=== PATIENT | male | born 1950 | race Caucasian/White ===

== ENCOUNTER → 2023-10-15 09:15 | Outpatient (REF) | payer MEDICARE, SELFPAY | LOC: DHCBS MAIN 09:15 | PROVIDERS: ATTENDING PHYSICIAN Internal Medicine Cardiovascular Disease; FAMILY PHYSICIAN Family Medicine | DX: R06.09 Other forms of dyspnea (principal); R73.03 Prediabetes | CPT/HCPCS: 93306 ==

== ENCOUNTER 2024-01-25 13:40 | Emergency (ER) | payer MEDICARE, SELFPAY ==
[2024-01-25] VITALS (7 sets, daily range): BP systolic 136–155; BP diastolic 69–93; BMI 31.0
--- NOTE | 2024-01-25 16:00 | ED.GENMED ---
History of Present Illness
General
Chief Complaint: Headache
Source: patient
Exam Limitations: none
Time Seen by Provider: 01/25/24 15:04
Nursing documentation reviewed up to this point in time: agreed with
Travel History
Have you had any contact with someone who has COVID-19?: No
Do you have any symptoms of coronavirus? Fever > 100 degrees, chills, cough, shortness of breath, sore throat, loss of taste or smell, muscle aches, or headache?: No
History of Present Illness
History of Present Illness:
73-year-old male with past history of asthma hypertension hyperlipidemia, recent diagnosis of prostate cancer that localized presenting to the emergency department today with concerns of worsening headache over the past few months also has noted
some difficulty with balance yesterday into today. Had a slight difficulty focusing his attention today as well. Denies nausea vomiting numbness weakness.
Past History
Past History
ED Past Medical History: Psychiatric and Other (DVT); Negative GERD or Hypercholesterolemia
ED Past Surgical History: Negative Cardiac
Social History
Tobacco: Non-smoker
Alcohol: None
Drug: None
Living: with family
Employment: Employed
Family History
Family History: Hypertension
Review of Systems
Review of Systems
Allergies reviewed?: Yes
All Other Systems: ROS reviewed and negative except as documented in HPI and ROS
Phy Exam
Physical Exam
Physical Exam:
GENERAL: Alert , in no apparent distress
EYE: pupils equal and reactive
NECK: Supple, no significant adenopathy.
ENT: o/p clr, mmm.
CARDIAC: Regular rate and rhythm .
LUNGS: Clear breath sounds bilaterally, no acute respiratory distress, no wheezes/rales/rhonchi
ABDOMEN: Soft, without focal tenderness, no r/g, no cvat
NEUROLOGICAL: Alert and oriented, no focal neuro deficits 5-5 upper and lower extremity strength normal sensation when palpating bilaterally normal finger-nose and bdww-gj-dbao no pronator drift. Gait is somewhat shuffling.
SKIN: Warm and dry, skin intact.
MUSCULOSKELETAL: No edema, well perfused.
PSYCH: Normal and appropriate interaction.
Course
Orders/Labs/Results
Orders:
Orders
01/25/24 15:23
CT Head W/o Iv Contrast Urgent
Comment:
Reason For Exam: right sided RIGGS, feel soff balance,
Bedside Glucose- Treatment ONCE
Cardiac Monitoring- Treatment ONCE
01/25/24 15:27
Electrocardiogram (*1) Stat
Reason for Study: Other
Other Reason for Exam: neuro symptoms
EKG- Treatment ONCE
01/25/24 15:37
Complete Blood Count/With Diff Urgent
Comprehensive Metabolic Panel Urgent
Erythrocyte Sed Rate Urgent
01/25/24 19:04
Aspirin 325 mg PO NOW STA
Abnormal Lab Results
01/25/24
15:37
RBC 3.96 L 10^6/uL
(4.70-6.10)
Hgb 12.2 L g/dL
(13.0-18.0)
Hct 34.1 L %
(39.0-52.0)
Sodium 132 L mmol/L
(135-145)
Creatinine 0.6 L mg/dL
(0.7-1.3)
01/25/24 15:37
01/25/24 15:37
Vital Signs
Initial and Last Documented VS:
Initial Vital Signs
Temp Pulse Resp BP Pulse Ox
98.9 F 87 20 155/93 97
01/25/24 13:48 01/25/24 13:48 01/25/24 13:48 01/25/24 13:48 01/25/24 13:48
Last Documented Vital Signs
Temp Pulse Resp BP Pulse Ox
98.9 F 74 15 137/86 97
01/25/24 13:48 01/25/24 18:30 01/25/24 18:30 01/25/24 18:30 01/25/24 13:48
MDM/Problems Addressed
MDM/Problems Addressed:
73-year-old male presenting to the emergency department today with concerns of right-sided headache worsening over the past few months also noted some balance issues starting yesterday. Denies changes in vision numbness weakness. Neurologic
examination without focal findings but did seem to be somewhat shuffling when walking. CT scan did show some chronic findings but did not show any acute hemorrhage or infarct did show cerebral volume loss cerebellar volume loss and Chiari I
malformation. This was discussed with the patient. It was recommended to be admitted concerning he had some ataxia on exam. It was explained to him that there is concern of potential strokelike process happening. He claims that he was unable to
stay but did understand the risk of potentially missing a stroke. He was encouraged to return immediately for any worsening symptoms or any ongoing symptoms and was encouraged to return with any change of heart. He demonstrated was able to recite
back our concern and his potential risks.
*Critical Care Note
Total Time (30-74mins, 75-104mins- exclusive of procedures): Not Applicable
ED Attending Note
-
Portions of this chart may have been created with voice recognition software.� Occasional wrong word or��sound alike� substitutions may have occurred due to the inherent limitations of voice recognition software.
Discharge Plan
Departure
Patient Disposition: Home (Routine Discharge)
Date of Disposition: 01/25/24
Time of Disposition: 19:07
Patient with high blood pressure during this ER visit?: No
Condition: Good
Covid-19: Not Applicable
Discharge Problem:
Ataxia, Left against medical advice
Instructions: Stroke
Prescriptions:
No Action
fluticasone propion-salmeterol [Advair Diskus] 1 DISK blister with device
1 puff inhalation BID
acetaminophen [Tylenol] 325 MG tablet
650 mg PO PRN PRN (Reason: shoulder pain)
aspirin 325 MG tablet
650 mg PO PRN PRN (Reason: pain)
calcium carbonate [calcium] 500 MG tablet
500 mg PO PRN PRN (Reason: leg cramps)
lorazepam 1 MG tablet
1 mg PO Q4HPRN PRN (Reason: anxiety)
vaoxnsuj-lmjmnqk-fash-lutein [Centrum Silver Ultra Women's] 1 EACH tablet
1 ea PO DAILY
Cory Red
1 tab PO DAILY
Wellbutrin
150 mg PO BID
Referrals:
Escobar Ibanez DO [Family Provider] -
Activity Restrictions/Additional Instructions:
You came to emergency department today with concerns of balance issues and ongoing headache. Here your CT scan did not show an obvious stroke but did show some chronic changes. On exam you had some slight difficulty with ambulation but otherwise
your neurologic examination was normal. You did have normal labs. It was recommended for you to stay in the hospital you were unable to. Please return immediately moving forward as needed.
Interventions
Interventions:
*Risk Screen - Suicide Last Done: 01/25/24 13:48
*General Assessment Last Done: 01/25/24 13:48
*Neglect/Abuse Screening Last Done: 01/25/24 13:48
ED- Fall Risk Assessment Last Done: 01/25/24 15:26
*ED COVID-19 Vaccine History Last Done: 01/25/24 15:26
ED- Neurological Assessment Last Done: 01/25/24 15:26
Discharge Date and Time
Print Language: BURUNDIAN
[2024-01-25 16:03] LABS: ALT (SGPT) 31 U/L (0-50); AST (SGOT) 38 U/L (17-59); Albumin 4.3 g/dl (3.5-5.0); Alkaline Phosphatase 79 U/L (38-126); Blood Urea Nitrogen 10 mg/dl (9-20); Calcium 9.3 mg/dl (8.4-10.2); Carbon Dioxide 25 mmol/L (22-30); Chloride 100 mmol/L (98-107); Estimated Creatinine Clearance 113 ml/min; Glucose 85 mg/dl (70-99); Potassium 4.2 mmol/L (3.5-5.1); Sodium 132 mmol/L (135-145); Total Bilirubin 0.3 mg/dl (0.2-1.3); Total Protein 6.6 g/dl (6.3-8.2); eGFR > 60.00
[2024-01-25 16:57] LABS: Erythrocyte Sed Rate 6 mm/hour (0-20)
[2024-01-25 16:59] LABS: % Basophils 0.7 % (0-2); % Eosinophils 2.9 % (0-6); % Immature Granulocytes 0.4 % (0-0.5); % Lymphocytes 33.2 % (20.5-51.1); % Monocytes 7.8 % (1.7-9.3); Absolute Basophils 0.1 10^3/uL (0-0.2); Absolute Eosinophils 0.2 10^3/uL (0-0.7); Absolute Lymphocytes 2.5 10^3/uL (1.2-3.4); Absolute Monocytes 0.6 10^3/uL (0.1-0.6); Absolute Neutrophils 4.1 10^3/uL (1.4-6.5); Hematocrit 34.1 % (39.0-52.0); Hemoglobin 12.2 g/dL (13.0-18.0); Mean Corp Hgb Conc. 35.8 g/dL (33.0-37.0); Mean Corpuscular Hgb 30.8 pg (27.0-31.0); Mean Corpuscular Volume 86.1 fL (80.0-94.0); Mean Platelet Volume 8.2 fL (7.4-10.4); Nucleated Red Blood Cells % 0 % (-); Platelet Count 238 10^3/uL (130-400); Red Blood Cell Count 3.96 10^6/uL (4.70-6.10); Red Cell Dist. Width 13.5 % (11.5-14.5); White Blood Cell Count 7.5 10^3/uL (4.8-10.8)
[2024-01-25] MEDS: ASPIRIN 325 MG PO (19:25)
--- NOTE | 2024-01-25 19:33 | EDRN ---
Pt says he has a little bit of a headache remaining. Pt ambulatory in ED room without difficulty, says he feels 'fine.' This RN reviewed stroke symptoms with pt and strongly encouraged pt to return to ED if his symptoms worsen in any way and not
to delay. Pt said he understood and lives close to hospital and will return if he worsens.
== END 2024-01-25 19:40 | disposition home or self-care (01) ==
LOC: EMR 13:40
PROVIDERS: Physician Assistant; EMERGENCY PHYSICIAN Student in an Organized Health Care Education/Training Program; FAMILY PHYSICIAN Family Medicine
DX: R27.0 Ataxia, unspecified (principal); Z53.29 Procedure and treatment not carried out because of patient's decision for other reasons; I10 Essential (primary) hypertension; E78.5 Hyperlipidemia, unspecified
CPT/HCPCS: 99285; 70450; 80053; 85025; 85652; 93005

== ENCOUNTER 2024-01-26 17:52 | Observation (INO) | payer MEDICARE, SELFPAY ==
[2024-01-26 12:19] VITALS: BMI 28.1
[2024-01-26 12:23] VITALS: BP 183/97
[2024-01-26 12:44] LABS: % Basophils 0.4 % (0-2); % Eosinophils 1.8 % (0-6); % Immature Granulocytes 0.5 % (0-0.5); % Lymphocytes 23.6 % (20.5-51.1); % Monocytes 6.7 % (1.7-9.3); Absolute Eosinophils 0.1 10^3/uL (0-0.7); Absolute Lymphocytes 1.8 10^3/uL (1.2-3.4); Absolute Monocytes 0.5 10^3/uL (0.1-0.6); Absolute Neutrophils 5.1 10^3/uL (1.4-6.5); Hematocrit 37.9 % (39.0-52.0); Hemoglobin 12.9 g/dL (13.0-18.0); Mean Corpuscular Hgb 30.7 pg (27.0-31.0); Mean Corpuscular Volume 90.2 fL (80.0-94.0); Mean Platelet Volume 7.8 fL (7.4-10.4); Nucleated Red Blood Cells % 0 % (-); Platelet Count 211 10^3/uL (130-400); Red Cell Dist. Width 13.6 % (11.5-14.5); White Blood Cell Count 7.6 10^3/uL (4.8-10.8)
[2024-01-26 13:09] LABS: ALT (SGPT) 29 U/L (0-50); AST (SGOT) 35 U/L (17-59); Albumin 4.4 g/dl (3.5-5.0); Alkaline Phosphatase 79 U/L (38-126); Blood Urea Nitrogen 12 mg/dl (9-20); Calcium 9.8 mg/dl (8.4-10.2); Carbon Dioxide 26 mmol/L (22-30); Chloride 98 mmol/L (98-107); Glucose 123 mg/dl (70-99); Potassium 4.4 mmol/L (3.5-5.1); Sodium 133 mmol/L (135-145); Total Bilirubin 0.5 mg/dl (0.2-1.3); Total Protein 6.8 g/dl (6.3-8.2); eGFR > 60.00
--- NOTE | 2024-01-26 16:29 | ED.GENMED ---
History of Present Illness
General
Chief Complaint: Headache
Time Seen by Provider: 01/26/24 16:29
Travel History
Have you had any contact with someone who has COVID-19?: No
Do you have any symptoms of coronavirus? Fever > 100 degrees, chills, cough, shortness of breath, sore throat, loss of taste or smell, muscle aches, or headache?: No
History of Present Illness
History of Present Illness:
HPI: The patient was seen here yesterday and was complaining of right-sided headache ongoing for months with more acute balance issues. The patient was found to be ataxic however the patient refused to stay in the hospital. Today, he had a brief
episode of slurred speech that lasted for about a minute. He also felt more 'wobbly today'. He came in here now willing to stay in the hospital for more of an evaluation.
EXAM:
GENERAL: Well appearing in no distress
HEENT: Moist oral mucosa
CARDIOVASCULAR: No murmurs, normal heart rate, regular rhythm, No chest wall tenderness
PULMONARY: No respiratory distress, breath sounds are clear and equal
ABDOMEN: Soft with no peritoneal signs, no tenderness
NEUROLOGIC: Excellent strength all extremities, no coordination deficits, normal malr-gi-anwf and normal finger-nose testing, he was able to walk without much difficulty, there is no dysarthria, NIHSS equals 0
PSYCHIATRIC: Appropriate mental status, normal insight and judgement
EXTREMITIES: Nontender, no edema, moves all extremities equally
SKIN: No rash, no lesions
TIME OF INITIAL ENCOUNTER: 4:30 p.m.
NUMBER AND COMPLEXITY OF PROBLEMS ADDRESSED AT THE ENCOUNTER
� Chronic conditions affecting care: High blood pressure, hyperlipidemia, prostate cancer, has had DVT in the past, has had retinal detachment in the past
� Acute Exacerbation and/or Progression of Chronic Illness: This is an acute to subacute problem
� Differential Diagnosis includes: Acute CVA, hemorrhagic stroke has been ruled out yesterday, occult mass not seen on CT
AMOUNT AND/OR COMPLEXITY OF DATA TO BE REVIEWED AND ANALYZED
� I performed an independent evaluation of and my interpretation is:
EKG:
CT:
X-rays:
Laboratory Studies: CBC and hemoglobin without significant change compared to prior, white count was normal,
Other:
� Review of other/old records: Reviewed CT report from yesterday: no acute abnormality was noted however Chiari I malformation was noted along with cerebral and cerebellar volume loss
� Clinical information was obtained by an independent historian: None needed
� Prescriptions/Medications Considered but not given:
� Further testing considered but not performed: Considered EKG but was in sinus yesterday
RISK OF COMPLICATIONS AND/OR MORBIDITY OR MORTALITY OF PATIENT MANAGEMENT
� Social determinants of health affecting care: Lives at home
� Discussion with other providers: Discussed case with Dr. Rucker at 4:40 PM who accepts to his service for further neurologic management
� Escalation of care including admission/observation vs risk of discharge considered: The patient was offered admission yesterday but declined. He returns feeling that his symptoms may worsen. However his NIH stroke scale is 0
currently.
Past History
Past History
ED Past Medical History: Psychiatric and Other (DVT); Negative GERD or Hypercholesterolemia
ED Past Surgical History: Negative Cardiac
Social History
Tobacco: Non-smoker
Alcohol: None
Drug: None
Living: with family
Employment: Employed
Family History
Family History: Hypertension
Phy Exam
Physical Exam
Physical Exam:
See HPI
Course
Orders/Labs/Results
Orders:
Orders
01/26/24 12:32
CMP [Comprehensive Metabolic Panel] Urgent
Complete Blood Count/With Diff Urgent
01/26/24 16:39
Acetaminophen [Tylenol] 1,000 mg PO NOW STA
01/26/24 17:11
NEUROLOGY CONSULT Routine
Consulting Provider: Pawan Barnhart
Was physician already notified: Yes
01/26/24 17:22
Admit/Transfer Patient As Directed
Co-Sign Provider:
Level of Care: Observation services
Assign to:: Telemetry
Physician / Group: nicho dutta
Diagnosis: TIA
Reason for Telemetry: CVA/TIA
Date to Stop Telemetry: 01/29/24
Time to Stop Telemetry: 11:00
01/26/24 17:24
Rizatriptan Orally Disintegrat [Maxalt Stonemason Apprentice (Orally Disintegrating)] 10 mg PO ONCE ONE
01/26/24 17:26
Code Status As Directed
Resuscitation Status: Full Code
01/29/24 11:00
DC Protocol for Telemetry ONCE
Abnormal Lab Results
01/26/24
12:32
RBC 4.20 L 10^6/uL
(4.70-6.10)
Hgb 12.9 L g/dL
(13.0-18.0)
Hct 37.9 L %
(39.0-52.0)
Sodium 133 L mmol/L
(135-145)
Creatinine 0.6 L mg/dL
(0.7-1.3)
Glucose 123 H mg/dl
(70-99)
01/26/24 12:32
01/26/24 12:32
Vital Signs
Initial and Last Documented VS:
Initial Vital Signs
Temp Pulse Resp BP Pulse Ox
98.2 F 69 18 183/97 98
01/26/24 12:23 01/26/24 12:23 01/26/24 12:23 01/26/24 12:23 01/26/24 12:23
Last Documented Vital Signs
Temp Pulse Resp BP Pulse Ox
98.2 F 69 18 183/97 98
01/26/24 12:23 01/26/24 12:23 01/26/24 12:23 01/26/24 12:23 01/26/24 12:23
*Critical Care Note
Total Time (30-74mins, 75-104mins- exclusive of procedures): Not Applicable
ED Attending Note
-
Portions of this chart may have been created with voice recognition software.� Occasional wrong word or��sound alike� substitutions may have occurred due to the inherent limitations of voice recognition software.
Discharge Plan
Departure
Patient Disposition: Admit
Date of Disposition: 01/26/24
Time of Disposition: 16:41
Presentation/result/management discussed w/ accepting MD/DO: Hospitalist
Discharge Problem:
Ataxia
Prescriptions:
No Action
aspirin 325 mg Tablet
325 mg PO ONCE PRN (Reason: mild pain)
Theragen Tablet
1 tab PO QPM
amlodipine 2.5 mg Tablet
2.5 mg PO DAILY
acetaminophen [Tylenol Arthritis] 650 mg Tablet Extended Release
1,300 mg PO TIDPRN PRN (Reason: mild pain)
dextroamphetamine-amphetamine 30 mg tablet
15 mg PO QID
lorazepam 0.5 mg Tablet
0.5 mg PO DAILYPRN PRN (Reason: mild anxiety)
desonide 0.05 % Ointment
1 applic TOPICAL BID
Patient Comments:
01/26/2024, filled on 01/22/2024 and instructed to apply BID for 7 days.
tamsulosin 0.4 mg Capsule
0.4 mg PO HS PRN (Reason: prostate issues)
Patient Comments:
01/26/2024, pt. alternates with their Tadalafil.
ibuprofen 200 mg Tablet
600 mg PO TIDPRN PRN (Reason: mild pain)
docusate sodium [Colace] 100 mg Capsule
200 mg PO HS
montelukast 10 mg Tablet
10 mg PO DAILY
bupropion HCl 300 mg tablet extended release 24 hr
300 mg PO DAILY
Rx Instructions:
01/26/2024, take with 150 mg for a total of 450 mg.
bupropion HCl 150 mg tablet extended release 24 hr
150 mg PO DAILY
Rx Instructions:
01/26/2024, take with 300 mg for a total of 450 mg.
tadalafil 10 mg Tablet
10 mg PO HSPRN PRN (Reason: ED)
Patient Comments:
01/26/2024, pt. alternates with their Tamsulosin.
olopatadine [Pataday] 0.2 % Drops
2 drp BOTH EYES BID
budesonide-formoterol [Symbicort] 80-4.5 mcg/actuation Hfa Aerosol Inhaler
1 puff INHALATION R BID
lorazepam 0.5 mg Tablet
1 mg PO DAILYPRN PRN (Reason: moderate anxiety)
lorazepam 0.5 mg Tablet
1.5 mg PO DAILYPRN PRN (Reason: severe anxiety)
atorvastatin 20 mg Tablet
20 mg PO DAILY
Interventions
Interventions:
*Risk Screen - Suicide Last Done: 01/26/24 12:23
*General Assessment Last Done: 01/26/24 12:23
*Neglect/Abuse Screening Last Done: 01/26/24 12:23
ED- Fall Risk Assessment Last Done: 01/26/24 16:55
*ED COVID-19 Vaccine History Last Done: 01/26/24 12:23
ED- Neurological Assessment Last Done: 01/26/24 16:55
Discharge Date and Time
Print Language: LEBANESE
[2024-01-26 16:30] VITALS: BP 161/88
[2024-01-26] MEDS: TYLENOL 1000 MG PO (16:48)
--- NOTE | 2024-01-26 16:50 | HPS.HSE ---
Addendum entered and electronically signed by Hussein De La Rosa MD 01/26/24 18:01:
I saw and examined the patient.
The ACTIVE DIRECTORY ARCHITECT or PA's note was reviewed and I agree with the note.
Comment:
73M ADHD DVT HLD Asthma HTN Prostate Ca p/w persistent intermittent right sided headache 6 weeks. Prompted to visit ED when he developed intermittent ataxia slurred speech lasting seconds past few days. Right sided headache denies vision
disturbances chest abd pain palpitations fever chills nausea vomiting diarrhea constipation. Hypertensive but otherwise VSS. CT head noted no acute abn's. Pending MRI
Physical Exam
General: No pallor, cyanosis, or jaundice.
HEENT: Throat clear. PERRLA Normocephalic atraumatic, horizontal nystagmus
NECK: Supple. No JVD Carotid Bruits
RESPIRATORY: Lungs clear to auscultation. No crackles wheezes stridor
CVS: S1, S2 normal. RRR. No murmur, rub or gallop.
ABDOMEN: Soft, non-tender. No distension. BS+/normal.
EXTREMITIES: No peripheral cyanosis or edema.
CORNCOB PIPES ASSEMBLER: AOx3. No focal deficits.
#Migraine
#Intermittent Ataxia Slurred Speech
Obs
Neuro Eval
trial triptan once
cont ASA
follow up Brain MRI
blood pressure control
Original Note:
Family Physician
-
Family Physician:
Chief Complaint
-
ataxic
slurred speech
History of Present Illness
73-year-old manage medical history for depression, ADHD, DVT, hyperlipidemia, asthma, hypertension, prostate cancer, BPH, presented to us with right-sided headache for 6 weeks. It was intermittent in the beginning but for past few days it has been
constant headache. Patient tried Tylenol as well as ibuprofen with some relief in his symptoms. Yesterday patient was ataxic. Patient was evaluated in the ER. Head CT obtained with no acute findings patient declined to stay overnight. Today
morning he noted slurred speech which lasted for few seconds. Patient also complained of nausea. Denied vomiting, diarrhea, abdominal pain. Patient denied dizziness or syncopal episode. Patient denied fever, chills, chest pain, short of breath.
Patient denied dysuria hematuria.
Head CT obtained last night with no acute findings. Admitting for further management
Medical History
Past Medical History
Past Medical History: Reports Other
Additional Past Medical History:
History of prostate cancer
Depression
Anxiety
DVT
Hyperlipidemia
Hypertension
Asthma
BPH
Past Surgical History: Reports Other
Additional Past Surgical History:
Detached retinal surgery
Tonsillectomy
Eye lead reduction/brow lift
Bilateral cataract surgery
Social History
Tobacco: Former Smoker
Alcohol: None
Drug: None
Personal: Partner
Living: With Family
Family History
Family History: Not pertinent
Allergies / Home Medications
Allergies reflects when Allergies were last updated in [facility].
Home Medications with original date entered in [facility]
Allergy/Medication List:
Allergies
Allergy/AdvReac Type Severity Reaction Status Date / Time
No Known Allergies Allergy Verified 01/26/24 12:23
Home Medications
acetaminophen 650 mg tablet,extended release 1,300 mg PO TIDPRN PRN mild pain 01/26/24
amlodipine 2.5 mg tablet 2.5 mg PO DAILY 01/26/24
aspirin 325 mg tablet 325 mg PO ONCE PRN mild pain 01/26/24
budesonide-formoterol HFA 80 mcg-4.5 mcg/actuation aerosol inhaler (Symbicort) 1 puff inhalation R BID 01/26/24
bupropion HCl 150 mg 24 hr tablet, extended release 150 mg PO DAILY 01/26/24
bupropion HCl 300 mg 24 hr tablet, extended release 300 mg PO DAILY 01/26/24
desonide 0.05 % topical ointment 1 applic topical BID neck 01/26/24
dextroamphetamine-amphetamine 30 mg tablet 15 mg PO QID 01/26/24
docusate sodium 100 mg capsule (Colace) 200 mg PO HS 01/26/24
ibuprofen 200 mg tablet 600 mg PO TIDPRN PRN mild pain 01/26/24
lorazepam 0.5 mg tablet 0.5 mg PO TID PRN anxiety 01/26/24
montelukast 10 mg tablet 10 mg PO DAILY 01/26/24
olopatadine 0.2 % eye drops 2 drp BOTH EYES BID 01/26/24
tadalafil 10 mg tablet 10 mg PO HSPRN PRN ED 01/26/24
tamsulosin 0.4 mg capsule 0.4 mg PO HS PRN prostate issues 01/26/24
therapeutic multivitamin 1 tab PO QPM 01/26/24
Review of Systems
-
Constitutional: Reports No Symptoms
EENT: Reports No Symptoms
Respiratory: Reports No Symptoms
Cardiac: Reports No Symptoms
Abdomen/GI: Reports Nausea
: Reports No Symptoms
Musculoskeletal: Reports No Symptoms
Skin: Reports No Symptoms
Neurological: Reports Headache and Other (Slurred speech, ataxia)
Endocrine: Reports No Symptoms
Hematologic/Lymphatic: Reports No Symptoms
Psych: Reports No Symptoms
Physical Exam
Vital Signs
Vital Signs
Temp Pulse Resp BP Pulse Ox
98.2 F 69 18 183/97 98
01/26/24 12:23 01/26/24 12:23 01/26/24 12:23 01/26/24 12:23 01/26/24 12:23
Physical Exam
General: Well Developed, Well Nourished and No Apparent Distress
HEENT: NormoCephalic, Moist mucous membranes and Atraumatic
Respiratory: Clear
Cardiac: S1/S2 and Regular Rhythm; No Murmur or Rub
GI: Soft, Non Tender, Non Distended and Normal Bowel Sounds; No Organomegaly
Rectal: Deferred by Provider
Musculoskeletal: No Clubbing, No Cyanosis and No Edema
Skin: No Rash
Neuro: AO x 3 and Nonfocal/grossly intact
Psych: Calm
Laboratory Results
-
01/26/24 12:32
01/26/24 12:32
Laboratory Results
Total Bilirubin 0.5 mg/dl (0.2-1.3) 01/26/24 12:32
AST 35 U/L (17-59) 01/26/24 12:32
ALT 29 U/L (0-50) 01/26/24 12:32
Alkaline Phosphatase 79 U/L (38-126) 01/26/24 12:32
Data Reviewed
-
CT Scan: Report Reviewed by me
Lab Data: Labs Reviewed by me
Impression/Plan
-
# Ataxia/slurred speech rule out acute CVA vs migraine RIGGS
-CT negative
-Aspirin continued
-initated on statin
-gave Rizatriptan once in ER.
-Obtain MRI
-Statin continued
-PT/OT consult
-Obtain A1c, lipid profile
-Neurology consulted
# Essential hypertension
-BP elevated in ER
-Norvasc continued
-iv hydralazine prn for SBp>180,DBp>100
# History of asthma
-Not in acute exacerbation
-Symbicort continued
-Singular continued
# Depression/anxiety
-Wellbutrin continued
-Lorazepam continued
# History of ADHD
-dextroamphetamine-amphetamine continued
# History of retinal detachment surgery
-Eyedrops from home continued
# BPH
-Flomax continued
# DVT prophylaxis
-Lovenox
# CODE STATUS
-Full code
[2024-01-26] MEDS: MAXALT MLT (ORALLY DISINTEGRATING) 10 MG PO ×2 (17:52→21:51)
[2024-01-26 19:36] VITALS: BP 182/97; BMI 29.4
[2024-01-26] MEDS: ADDERALL PO ×2 (20:16→21:51)
[2024-01-26] MEDS: SYMBICORT 80/4.5 MCG INHALER 1 PUFF INH (20:19)
[2024-01-26 20:35] VITALS: BP 147/83
[2024-01-26] MEDS: ZADITOR 2 DROP BOTH EYES (20:50)
[2024-01-26] MEDS: FLOMAX 0.400000000000000022 MG PO (20:51)
[2024-01-26] MEDS: LIPITOR 40 MG PO (20:51)
[2024-01-26] MEDS: COLACE 200 MG PO (20:51)
[2024-01-26] MEDS: ATIVAN 0.5 MG PO (20:52)
--- NOTE | 2024-01-26 22:15 | PTCARENOTE ---
Received patient from ED via stretcher at 1999. Patient ambulated from stretcher to bed independently. Patient c/o 5/10 posterior headache. INDEPENDENT MARKETING CONSULTANT made aware, rizatriptan ordered and given to patient at 2150 with relief. AAOx3, NIH 1, see neuro
flowsheet. Oriented patient to room and placed call valerio within reach.
[2024-01-26 23:31] VITALS: BP 124/72
[2024-01-27 03:28] VITALS: BP 109/69
[2024-01-27 05:24] LABS: Hematocrit 36.9 % (39.0-52.0); Hemoglobin 12.7 g/dL (13.0-18.0); Mean Corp Hgb Conc. 34.4 g/dL (33.0-37.0); Mean Corpuscular Hgb 30.8 pg (27.0-31.0); Mean Corpuscular Volume 89.3 fL (80.0-94.0); Mean Platelet Volume 8.2 fL (7.4-10.4); Platelet Count 231 10^3/uL (130-400); Red Blood Cell Count 4.13 10^6/uL (4.70-6.10); Red Cell Dist. Width 13.5 % (11.5-14.5); White Blood Cell Count 6.6 10^3/uL (4.8-10.8)
[2024-01-27 05:46] LABS: Blood Urea Nitrogen 12 mg/dl (9-20); Calcium 9.6 mg/dl (8.4-10.2); Carbon Dioxide 24 mmol/L (22-30); Chloride 102 mmol/L (98-107); Estimated Creatinine Clearance 99 ml/min; Glucose 100 mg/dl (70-99); HDL Cholesterol 63 mg/dl; LDL Cholesterol, Calculated 81 mg/dl; Potassium 4.3 mmol/L (3.5-5.1); Sodium 136 mmol/L (135-145); Total Cholesterol 164 mg/dl (50-199); Triglyceride 100 mg/dl (10-149); Very Low Density Lipoprotein 20 mg/dl (0-30); eGFR > 60.00
[2024-01-27] MEDS: SYMBICORT 80/4.5 MCG INHALER 1 PUFF INH (07:54)
[2024-01-27 07:55] VITALS: BP 136/76
[2024-01-27] MEDS: ADDERALL PO ×2 (08:39→08:47)
[2024-01-27] MEDS: SINGULAIR 10 MG PO (08:40)
[2024-01-27] MEDS: ZADITOR 2 DROP BOTH EYES (08:40)
[2024-01-27] MEDS: NORVASC 2.5 MG PO ×2 (08:40→12:05)
[2024-01-27] MEDS: WELLBUTRIN XL (24 hour extended release) 300 MG PO (08:40)
[2024-01-27] MEDS: WELLBUTRIN XL (24 hour extended release) 150 MG PO (08:40)
[2024-01-27] MEDS: LOW STRENGTH ASPIRIN 81 MG PO (08:40)
--- NOTE | 2024-01-27 08:55 | W.PN.HOSP.TC ---
Today's Communication/Plan
-
Discharge today
Assessment / Plan
Assessment / Plan
73M ADHD DVT HLD Asthma HTN Prostate Ca p/w persistent intermittent right sided headache 6 weeks. Prompted to visit ED when he developed intermittent ataxia slurred speech lasting seconds past few days. Right sided headache denies vision
disturbances chest abd pain palpitations fever chills nausea vomiting diarrhea constipation. Hypertensive but otherwise VSS. CT head noted no acute abn's. Pending MRI
# Complex migraine
#Intermittent Ataxia Slurred Speech
Brain MRI negative for CVA
Migraine resolved with Compazine and rizatriptan
Medically stable for discharge
Neurology recommends continuing statin, no need for aspirin
#Glucose intolerance
Hemoglobin A1c 6.3
Discussed with patient the need for low carbohydrate diet
# Essential hypertension
-Blood pressure improved, continue Norvasc
# History of asthma
-Not in acute exacerbation
-Symbicort continued
-Singular continued
# Depression/anxiety
-Wellbutrin continued
-Lorazepam continued
# History of ADHD
-dextroamphetamine-amphetamine continued
# History of retinal detachment surgery
-Eyedrops from home continued
# BPH
-Flomax continued
# DVT prophylaxis
-Lovenox
# CODE STATUS
-Full code
Physical Exam
General: No acute distress
HEENT: Normocephalic, Atraumatic, EOMI, MMM
Respiratory: Clear to Auscultation bilaterally
Cardiac: Normal S1/S2, Regular Rate and Rhythm
GI: Soft, Nontender, Nondistended, Normal Bowel Sounds
Extremities: No Clubbing, Cyanosis, or Edema
Neuro: Nonfocal/Grossly Intact
Psych: Calm, Cooperative
Derm: No Visible lesions
Anticipated Discharge: Today
Subjective/Interval History
-
Date of Service: January 27, 2024
Headache improved. No more dysarthria. No fever, no vomiting.
Objective Data
-
Labs:
Laboratory Results
01/27/24
04:40
WBC 6.6
Hgb 12.7 L
Hct 36.9 L
Plt Count 231
Sodium 136
Potassium 4.3
Chloride 102
Carbon Dioxide 24
BUN 12
Creatinine 0.6 L
Glucose 100 H
Calcium 9.6
Vital Signs:
Vital Signs
Temp Pulse Resp BP Pulse Ox
97.8 F 75 14 136/76 99
01/27/24 07:55 01/27/24 08:40 01/27/24 07:58 01/27/24 08:40 01/27/24 07:58
I&O
01/26/24 01/27/24 01/28/24
06:59 06:59 06:59
Intake Total 240 / 240
Balance 240 / 240
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
[2024-01-27 10:09] LABS: Glycohemoglobin (HgbA1c) 6.3 % (4.0-5.6)
[2024-01-27 12:04] VITALS: BP 146/76
[2024-01-27] MEDS: MAXALT MLT (ORALLY DISINTEGRATING) 10 MG PO (12:05)
[2024-01-27] MEDS: ADDERALL 15 MG PO (12:06)
--- NOTE | 2024-01-27 13:39 | W.DCSUMMARY ---
Discharge Summary
Discharge Data
Date of Admission: 01/26/24
Date of Discharge: 01/27/24
-
Pending Results: No
Hospital Course
Discharge diagnosis:
Complex headache
Transient ataxia and dysarthria
Glucose intolerance
Benign essential hypertension
History of asthma
Anxiety/depression
History of retinal detachment surgery
Benign prostatic hypertrophy
Consults: Neurology
Brain MRI:
There is no acute intracranial process.
There is no mass or abnormal enhancement on postcontrast imaging. No findings to suggest abnormal enhancement or metastatic disease.
There is mild diffuse volume loss. There is moderate leukoaraiosis, slightly increased in the interval since the previous exam.
Hospital course:
73-year-old male with a past medical history of prostate cancer, hypertension, and asthma was admitted for intermittent right-sided headache for 6 weeks. Associated symptoms include ataxia, slurred speech that is waxing and waning. His ataxia and
slurred speech have resolved.
Patient was seen in conjunction with neurology. His MRI was negative for acute stroke. He was treated with Maxalt and Compazine for his headache. His headache resolved. Neurology recommends continuing his statin. He does not need aspirin 81 mg
daily.
Patient's blood pressure was elevated upon admission at 182/97. Suspect this is due to his headache. His blood pressure did improve to 146/76. Neurology recommends he increase his amlodipine from 2.5 mg daily to 5 mg daily.
Patient was found to have glucose intolerance, and was counseled on a low carbohydrate diet.
Patient is medically stable and cleared by neurology for discharge.
Disposition: Home self-care
Discharge planning: Required 33-minute
Discharge Plan
-
Patient Disposition: Home (Routine Discharge)
Discharge Diagnosis/Procedures: Complex migraine
Condition: Fair
Diet: Low Fat, Low Cholesterol and Diabetic, Carb Controlled
Activity: As tolerated
Driving Restrictions: As prior to admission
Referrals:
Brittni Johnson CRNP [Specified Professional Personl] - in four to six weeks
Escobar Ibanez DO [Family Provider] - in one week
Prescriptions:
New
rizatriptan 10 mg tablet,disintegrating
10 mg PO ONCE PRN (Reason: migraine headache) Qty: 10 0RF
prochlorperazine maleate [Compazine] 10 mg tablet
10 mg PO BID PRN (Reason: migraine headache) Qty: 30 0RF
amlodipine 5 mg tablet
5 mg PO DAILY Qty: 30 0RF
Continued
aspirin 325 mg Tablet
325 mg PO ONCE PRN (Reason: mild pain)
therapeutic multivitamin Tablet
1 tab PO QPM
amlodipine 2.5 mg Tablet
2.5 mg PO DAILY
acetaminophen 650 mg Tablet Extended Release
1,300 mg PO TIDPRN PRN (Reason: mild pain)
dextroamphetamine-amphetamine 30 mg tablet
15 mg PO QID
lorazepam 0.5 mg Tablet
0.5 mg PO DAILYPRN PRN (Reason: mild anxiety)
desonide 0.05 % Ointment
1 applic TOPICAL BID
Patient Comments:
01/26/2024, filled on 01/22/2024 and instructed to apply BID for 7 days.
tamsulosin 0.4 mg Capsule
0.4 mg PO HS PRN (Reason: prostate issues)
Patient Comments:
01/26/2024, pt. alternates with their Tadalafil.
ibuprofen 200 mg Tablet
600 mg PO TIDPRN PRN (Reason: mild pain)
docusate sodium [Colace] 100 mg Capsule
200 mg PO HS
montelukast 10 mg Tablet
10 mg PO DAILY
bupropion HCl 300 mg tablet extended release 24 hr
300 mg PO DAILY
Rx Instructions:
01/26/2024, take with 150 mg for a total of 450 mg.
bupropion HCl 150 mg tablet extended release 24 hr
150 mg PO DAILY
Rx Instructions:
01/26/2024, take with 300 mg for a total of 450 mg.
tadalafil 10 mg Tablet
10 mg PO HSPRN PRN (Reason: ED)
Patient Comments:
01/26/2024, pt. alternates with their Tamsulosin.
olopatadine 0.2 % Drops
2 drp BOTH EYES BID
budesonide-formoterol [Symbicort] 80-4.5 mcg/actuation Hfa Aerosol Inhaler
1 puff INHALATION R BID
lorazepam 0.5 mg Tablet
1 mg PO DAILYPRN PRN (Reason: moderate anxiety)
lorazepam 0.5 mg Tablet
1.5 mg PO DAILYPRN PRN (Reason: severe anxiety)
atorvastatin 20 mg Tablet
20 mg PO DAILY
Discharge Orders:
Discharge Patient (As Directed); Ordered 01/27/24
Ordered By: Shimon Del Rio
Discharge Date and Time
Discharge Date/Time: 01/27/24 14:26
Print Language: DOMINICAN
[2024-01-27 14:00] VITALS: BP 146/83; PULSE 81; O2SAT 99
[2024-01-27 14:04] VITALS: BP 146/83; PULSE 84; O2SAT 99
--- NOTE | 2024-01-27 14:22 | CM ---
Alert awake oriented patient who lives with his SO River who lives in a 2 story home with 2 step to enter and 12 steps to bed and bathroom. He is independent in driving and in all activities of daily living.He was offered VN he declined need.He
said River will drive him home.
No VN hx / No SNF history
Pharm[facility]
PCP DR Ibanez
PLAN Home Declined VN
--- NOTE | 2024-01-27 14:41 | PTOTSP ---
pt currently demonstrates ability to complete simple ADLs, functional transfers, ambulation with no assistance. no acute OT needs identified at this time, will sign off.
--- NOTE | 2024-01-27 15:11 | PTOTSP ---
Patient demonstrates independence with mobility, transfers and ambulation. Does not demonstrate further need for skilled therapy and will be discharged. If needs change, please re-consult.
== END 2024-01-27 14:26 | disposition home or self-care (01) ==
LOC: 4 EAST ACU 17:52
PROVIDERS: Emergency Medicine; Registered Nurse; ADMITTING PHYSICIAN Internal Medicine; ATTENDING PHYSICIAN Family Medicine; CONSULT PHYSICIAN Psychiatry & Neurology Neurology; EMERGENCY PHYSICIAN Emergency Medicine; FAMILY PHYSICIAN Family Medicine
DX: G43.109 Migraine with aura, not intractable, without status migrainosus (principal); R27.0 Ataxia, unspecified; G93.5 Compression of brain; E74.39 Other disorders of intestinal carbohydrate absorption; R47.81 Slurred speech; I10 Essential (primary) hypertension; E78.5 Hyperlipidemia, unspecified; F90.9 Attention-deficit hyperactivity disorder, unspecified type; J45.909 Unspecified asthma, uncomplicated; F32.A Depression, unspecified; F41.9 Anxiety disorder, unspecified; R11.0 Nausea; N40.0 Benign prostatic hyperplasia without lower urinary tract symptoms; Z85.46 Personal history of malignant neoplasm of prostate; Z86.718 Personal history of other venous thrombosis and embolism; Z82.49 Family history of ischemic heart disease and other diseases of the circulatory system; Z87.891 Personal history of nicotine dependence; Z79.51 Long term (current) use of inhaled steroids; Z79.82 Long term (current) use of aspirin
CPT/HCPCS: 70553; 80048; 80053; 80061; 83036; 85025; 85027; 94640; 97116; 97162; 97165; 99285; G0378

== ENCOUNTER → 2024-05-24 13:49 | Outpatient (REF) | payer MEDICARE, SELFPAY | LOC: RAD 13:49 | PROVIDERS: ATTENDING PHYSICIAN Internal Medicine Critical Care Medicine; FAMILY PHYSICIAN Family Medicine | DX: M79.89 Other specified soft tissue disorders (principal) | CPT/HCPCS: 93971 ==

== ENCOUNTER 2024-05-26 14:12 | Emergency (ER) | payer MEDICARE, SELFPAY ==
[2024-05-26] VITALS (15 sets, daily range): BP systolic 136–167; BP diastolic 81–95; PULSE 70–82
[2024-05-26 14:32] LABS: % Basophils 0.2 % (0-2); % Eosinophils 0.3 % (0-6); % Immature Granulocytes 0.5 % (0-0.5); % Lymphocytes 14.1 % (20.5-51.1); % Monocytes 4.4 % (1.7-9.3); % Neutrophils 80.5 % (42.2-75.2); Absolute Lymphocytes 1.2 10^3/uL (1.2-3.4); Absolute Monocytes 0.4 10^3/uL (0.1-0.6); Hematocrit 37.5 % (39.0-52.0); Hemoglobin 13.1 g/dL (13.0-18.0); Mean Corp Hgb Conc. 34.9 g/dL (33.0-37.0); Mean Corpuscular Hgb 30.2 pg (27.0-31.0); Mean Corpuscular Volume 86.4 fL (80.0-94.0); Mean Platelet Volume 7.8 fL (7.4-10.4); Nucleated Red Blood Cells % 0 % (-); Platelet Count 231 10^3/uL (130-400); Red Blood Cell Count 4.34 10^6/uL (4.70-6.10); Red Cell Dist. Width 13.1 % (11.5-14.5); White Blood Cell Count 8.7 10^3/uL (4.8-10.8)
[2024-05-26 15:06] LABS: ALT (SGPT) 20 U/L (0-50); AST (SGOT) 26 U/L (17-59); Albumin 4.6 g/dl (3.5-5.0); Alkaline Phosphatase 91 U/L (38-126); Blood Urea Nitrogen 14 mg/dl (9-20); Calcium 9.9 mg/dl (8.4-10.2); Carbon Dioxide 20 mmol/L (22-30); Chloride 99 mmol/L (98-107); Glucose 139 mg/dl (70-99); Potassium 3.7 mmol/L (3.5-5.1); Sodium 134 mmol/L (135-145); Total Bilirubin 0.4 mg/dl (0.2-1.3); Total Protein 7.1 g/dl (6.3-8.2); eGFR > 60.00
--- NOTE | 2024-05-26 15:35 | ED.GENMED ---
History of Present Illness
<Geraldine Jackson PA-C - Last Filed: 05/26/24 23:02>
General
Chief Complaint: Dizziness
Source: patient
Exam Limitations: none
Time Seen by Provider: 05/26/24 14:59
Nursing documentation reviewed up to this point in time: agreed with
History of Present Illness
History of Present Illness:
Patient is a 74-year-old male presenting to the emergency department for evaluation of multiple symptoms today. Patient states that starting yesterday he felt extremely fatigued with some lightheadedness, nausea, and headache. Patient states he
felt somewhat unsteady. He also endorses subjective fevers, chills. Patient states today he still feels somewhat lightheaded and fatigued. He does have a persistent mild headache although somewhat improved from yesterday. He also notes that he
feels that he has been urinating less.
Patient does deny any chest pain or shortness of breath. Patient denies any sensation of true dizziness. Patient denies any confusion, visual changes or disturbances, double vision.
Patient denies any sick contacts.
Past History
<Geraldine Jackson PA-C - Last Filed: 05/26/24 23:02>
Past History
ED Past Medical History: Psychiatric and Other (DVT); Negative GERD or Hypercholesterolemia
ED Past Surgical History: Negative Cardiac
Social History
Tobacco: Non-smoker
Alcohol: None
Drug: None
Living: with family
Employment: Employed
Family History
Family History: Hypertension
Review of Systems
<Geraldine Jackson PA-C - Last Filed: 05/26/24 23:02>
Review of Systems
Allergies reviewed?: Yes
All Other Systems: ROS reviewed and negative except as documented in HPI and ROS
Phy Exam
<Geraldine Jackson PA-C - Last Filed: 05/26/24 23:02>
Physical Exam
Physical Exam:
Vitals: Hypertensive, otherwise vital signs stable. Afebrile
General: Patient is well appearing, no acute distress. Nontoxic-appearing
Skin: Warm and dry, no rashes or lesions
Head: Normocephalic, atraumatic
Eyes: Sclera nonicteric. EOMs intact. No nystagmus.
Throat: Protecting airway
Neck: Normal ROM, no cervical spine tenderness, no meningismus
Cardiac: Regular rate and rhythm, no murmurs.
Pulm: Normal respiratory effort, no wheezes, rales, rhonchi heard on exam.
Abdomen: Abdomen soft. No abdominal tenderness.
Extremities: No evidence of cyanosis or edema. [place] distal pulses
Neuro: AAOx3. CN II-XII intact. No focal neurologic deficits. Normal finger to nose. Strength 5/5 in upper and lower extremities. Sensation fully intact. Steady gait. Fluid speech
Psychiatric: Normal affect.
Course
<Geraldine Jackson PA-C - Last Filed: 05/26/24 23:02>
Orders/Labs/Results
Orders:
Orders
05/26/24 14:18
Electrocardiogram (*1) Urgent
Reason for Study: Chest Pain
EKG- Treatment ONCE
05/26/24 14:23
Complete Blood Count/With Diff Urgent
Comprehensive Metabolic Panel Urgent
Lipase Urgent
Comment: ADD ON
05/26/24 15:23
Orthostatic VS- Treatment ONCE
0.9% Sodium Chloride 1000 ml [Nss] 1,000 ml IV BOLUS
05/26/24 15:24
Add On- LAB Urgent
Tests Added?: lipase
05/26/24 15:29
Acetaminophen [Tylenol] 650 mg PO NOW STA
05/26/24 15:45
COVID-19 Antigen Urgent
Source: Nasal Swab
Influenza A+B Rapid Molecular Urgent
BEN Source: Nasal Swab
Specimen Description:
05/26/24 18:06
CT Chest Pe Study Urgent
Comment: known DVT
Reason For Exam: Shortness of breath, lightheaded
05/26/24 18:22
Troponin I Urgent
05/26/24 19:26
Ketorolac [Toradol] 15 mg IV NOW STA
05/26/24 20:56
Urinalysis Reflex To Culture Urgent
Date Specimen was Collected: 05/26/24
Time Specimen was Collected: 20:55
Abnormal Lab Results
05/26/24 05/26/24
14:23 20:56
RBC 4.34 L 10^6/uL
(4.70-6.10)
Hct 37.5 L %
(39.0-52.0)
Absolute Neuts (auto) 7.0 H 10^3/uL
(1.4-6.5)
Neutrophils % 80.5 H %
(42.2-75.2)
Lymphocytes % 14.1 L %
(20.5-51.1)
Sodium 134 L mmol/L
(135-145)
Carbon Dioxide 20 L mmol/L
(22-30)
Creatinine 0.6 L mg/dL
(0.7-1.3)
Glucose 139 H mg/dl
(70-99)
Urine Ketones Trace A
(Negative)
05/26/24 14:23
05/26/24 14:23
Vital Signs
Initial and Last Documented VS:
Initial Vital Signs
Temp Pulse Resp BP Pulse Ox
98.7 F 83 20 161/95 98
05/26/24 14:15 05/26/24 14:15 05/26/24 14:15 05/26/24 14:15 05/26/24 14:15
Last Documented Vital Signs
Temp Pulse Resp BP Pulse Ox
98.7 F 67 11 167/89 96
05/26/24 14:15 05/26/24 22:00 05/26/24 22:00 05/26/24 22:00 05/26/24 22:00
<Jesus Hansen, DO - Last Filed: 05/28/24 15:08>
Orders/Labs/Results
Orders:
Orders
05/26/24 14:18
Electrocardiogram (*1) Urgent
Reason for Study: Chest Pain
EKG- Treatment ONCE
05/26/24 14:23
Complete Blood Count/With Diff Urgent
Comprehensive Metabolic Panel Urgent
Lipase Urgent
Comment: ADD ON
05/26/24 15:23
Orthostatic VS- Treatment ONCE
0.9% Sodium Chloride 1000 ml [Nss] 1,000 ml IV BOLUS
05/26/24 15:24
Add On- LAB Urgent
Tests Added?: lipase
05/26/24 15:29
Acetaminophen [Tylenol] 650 mg PO NOW STA
05/26/24 15:45
COVID-19 Antigen Urgent
Source: Nasal Swab
Influenza A+B Rapid Molecular Urgent
BEN Source: Nasal Swab
Specimen Description:
05/26/24 18:06
CT Chest Pe Study Urgent
Comment: known DVT
Reason For Exam: Shortness of breath, lightheaded
05/26/24 18:22
Troponin I Urgent
05/26/24 19:26
Ketorolac [Toradol] 15 mg IV NOW STA
05/26/24 20:56
Urinalysis Reflex To Culture Urgent
Date Specimen was Collected: 05/26/24
Time Specimen was Collected: 20:55
Abnormal Lab Results
05/26/24 05/26/24
14:23 20:56
RBC 4.34 L 10^6/uL
(4.70-6.10)
Hct 37.5 L %
(39.0-52.0)
Absolute Neuts (auto) 7.0 H 10^3/uL
(1.4-6.5)
Neutrophils % 80.5 H %
(42.2-75.2)
Lymphocytes % 14.1 L %
(20.5-51.1)
Sodium 134 L mmol/L
(135-145)
Carbon Dioxide 20 L mmol/L
(22-30)
Creatinine 0.6 L mg/dL
(0.7-1.3)
Glucose 139 H mg/dl
(70-99)
Urine Ketones Trace A
(Negative)
05/26/24 14:23
05/26/24 14:23
Vital Signs
Initial and Last Documented VS:
Initial Vital Signs
Temp Pulse Resp BP Pulse Ox
98.7 F 83 20 161/95 98
05/26/24 14:15 05/26/24 14:15 05/26/24 14:15 05/26/24 14:15 05/26/24 14:15
Last Documented Vital Signs
Temp Pulse Resp BP Pulse Ox
98.7 F 67 11 167/89 96
05/26/24 14:15 05/26/24 22:00 05/26/24 22:00 05/26/24 22:00 05/26/24 22:00
<Geraldine Jackson PA-C - Last Filed: 05/26/24 23:02>
MDM/Problems Addressed
Differential Diagnosis Includes:
Not limited to: viral illness, orthostatic hypotension, anemia, UTI, sinusitis, gastroenteritis, doubt central neurologic process.
MDM/Problems Addressed:
74-year-old male presenting with generalized weakness and lightheadedness. Does endorse persistent headache, gradual in onset. Denies any true dizziness sensation. Does feel somewhat unsteady on feet while walking. Vital signs stable. Physical
exam as above. Patient relatively well-appearing, in no apparent distress. Patient is nontoxic-appearing. Patient is conversational. Heart regular rate and rhythm. Lungs are clear bilaterally. Abdomen soft nontender. Patient is perfusing well
with great distal pulses. Patient is alert and oriented with no focal neurologic deficits. Patient has steady gait with no clear ataxia on my exam. Differential broad at this time although include viral illness, anemia, sinusitis, allergic
rhinitis, cardiac arrhythmia etc. Do not suspect acute intra-abdominal infection. Do not suspect central neurologic process. Will check basic labs, viral swabs, orthostatics. Will give IV fluid, Tylenol. Will closely monitor and reassess.
Chronic conditions affecting care:
HTN, HLD
Acute Exacerbation and/or Progression of Chronic Illness:
N/A
<Geraldine Jackson PA-C - Last Filed: 05/26/24 23:02>
*Radiology
Radiology exam reviewed: radiology read reviewed
*Pulse Oximetry
Patient hypoxic: no
*EKG
Interpreted by ED Provider?: Yes
EKG Intrepretation Date: 05/26/24
Interpretation: normal
Comparison EKG: no changes
Heart Rate: 76
Rate: normal
Rhythm: sinus
[place]: normal axis
Interval: normal interval
QRS Pattern: low voltage
Ischemia: non-specific ST changes
*[employer] Interpretation
Rate: normal
Interpretation: normal
Heart Rate: 72
Rhythm: sinus
*Critical Care Note
Total Time (30-74mins, 75-104mins- exclusive of procedures): Not Applicable
<Geraldine Jackson PA-C - Last Filed: 05/26/24 23:02>
Update Note
Update Note:
Update: Labs reviewed. No clinically significant abnormalities. Urine is not infected. Viral swabs including COVID and flu negative. On reassessment�patient still endorsing headache. He was up and walking to the bathroom and states that he
still feels unsteady on his feet and now endorses shortness of breath. Upon further questioning�he states he has had some mild exertional shortness of breath over the past few weeks. Patient does have a known nonocclusive DVT in his right lower
leg, not currently anticoagulated. Given this known clot and new onset shortness of breath�will check CT a chest to ensure no pulmonary embolism, although I find unlikely. Patient is not hypoxic and remains in no apparent respiratory distress.
Update: Troponin normal. Symptoms been ongoing over the past 2 weeks�is sufficient to rule out acute UT. Do not suspect ACS. PE study normal. Patient does state that headache is somewhat improved although waxes and wanes. Patient remains out
any focal neurologic deficits. Given symptoms have persisted and patient still reports unsteadiness and lightheadedness�admission to hospital was offered and discussed. Discussed with admitting hospitalist, Dr. Aguilera who was in to see patient
at bedside who reports is now asymptomatic and feels there is no need for admission and further emergent testing. Patient is comfortable with discharge and will follow closely with PCP. Patient very stable upon discharge walking steadily around
room. Patient seen with attending physician
ED Attending Note
<Geraldine Jackson PA-C - Last Filed: 05/26/24 23:02>
-
Portions of this chart may have been created with voice recognition software.� Occasional wrong word or��sound alike� substitutions may have occurred due to the inherent limitations of voice recognition software.
<Jesus Hansen, - Last Filed: 05/28/24 15:08>
ED Attending Note
Patient seen and examined by attending physician: Yes
I performed a history and physical exam of patient and discussed management with resident, I reviewed resident's note and agree with documented findings and plan of care.: Yes
ED Attending Note:
I reviewed and agree with history and treatment plan by Geraldine Chilel. My exam revealed 74-year-old male no acute distress. States he feels globally weak. No neurological deficits noted.
No acute findings on labs head CT. Do not suspect CVA. Patient stable for discharge.
Discharge Plan
Departure
Patient Disposition: Home (Routine Discharge)
Date of Disposition: 05/26/24
Time of Disposition: 21:29
Patient with high blood pressure during this ER visit?: Yes
Condition: Good
Covid-19: Negative COVID-19
Discharge Problem:
Lightheadedness, Generalized weakness
Instructions: Fatigue (DC), Weakness ED, Dizziness, BLOOD PRESSURE
Prescriptions:
No Action
therapeutic multivitamin Tablet
1 tab PO QPM
acetaminophen 650 mg Tablet Extended Release
1,300 mg PO TIDPRN PRN (Reason: mild pain)
dextroamphetamine-amphetamine 30 mg tablet
15 mg PO .TID-QID
Patient Comments:
05/26/2024: last filled 05/15/24, 60 tabs for 30 days from [facility]
lorazepam 0.5 mg Tablet
0.5 mg PO DAILYPRN PRN (Reason: mild anxiety)
Patient Comments:
05/26/2024: last filled 05/21/24, 60 tabs for 30 days from [facility]
tamsulosin 0.4 mg Capsule
0.4 mg PO HS PRN (Reason: prostate issues)
Patient Comments:
01/26/2024, pt. alternates with their Tadalafil.
ibuprofen 200 mg Tablet
600 mg PO TIDPRN PRN (Reason: mild pain)
docusate sodium [Colace] 100 mg Capsule
200 mg PO HS
montelukast 10 mg Tablet
10 mg PO DAILY
bupropion HCl 300 mg tablet extended release 24 hr
300 mg PO DAILY
Rx Instructions:
01/26/2024, take with 150 mg for a total of 450 mg.
bupropion HCl 150 mg tablet extended release 24 hr
150 mg PO DAILY
Rx Instructions:
01/26/2024, take with 300 mg for a total of 450 mg.
tadalafil 10 mg Tablet
10 mg PO HSPRN PRN (Reason: ED)
Patient Comments:
01/26/2024, pt. alternates with their Tamsulosin.
lorazepam 0.5 mg Tablet
1 mg PO DAILYPRN PRN (Reason: moderate anxiety)
Patient Comments:
05/26/2024: last filled 05/21/24, 60 tabs for 30 days from [facility]
lorazepam 0.5 mg Tablet
1.5 mg PO DAILYPRN PRN (Reason: severe anxiety)
Patient Comments:
05/26/2024: last filled 05/21/24, 60 tabs for 30 days from [facility]
atorvastatin 20 mg Tablet
20 mg PO DAILY
amlodipine 5 mg tablet
5 mg PO DAILY Qty: 30 0RF
cetirizine [Zyrtec] 10 mg Tablet
10 mg PO DAILY
pramipexole 0.25 mg tablet
0.25 mg PO HS
budesonide-formoterol [Symbicort] 160-4.5 mcg/actuation HFA aerosol inhaler
2 puff INHALATION R BID
Referrals:
Escobar Ibanez DO [Family Provider] - Follow up in 2-3 days
Activity Restrictions/Additional Instructions:
Return to the emergency department with any fevers, severe headache/neck pain, persistent lightheadedness/dizziness, chest pain, shortness of breath changes in mental status, worsening current symptoms, or any other concerns
It is important stay well-hydrated. You should take it easy over the next few days. You can take Tylenol or Motrin as needed for headache.
Follow-up with your primary care provider in a few days to ensure that symptoms are improving/for further evaluation
Monitor your symptoms closely and return to the emergency department for any acute worsening/new symptoms
Interventions
Interventions:
*Risk Screen - Suicide Last Done: 05/26/24 14:15
*General Assessment Last Done: 05/26/24 14:15
*Neglect/Abuse Screening Last Done: 05/26/24 14:15
ED- Fall Risk Assessment Last Done: 05/26/24 22:21
*ED COVID-19 Vaccine History Last Done: 05/26/24 14:55
*Nursing Disposition Last Done: 05/26/24 22:21
ED- Neurological Assessment Last Done: 05/26/24 14:55
ED Swallowing Screen Last Done: 05/26/24 15:50
Discharge Date and Time
Discharge Date/Time: 05/26/24 22:41
Print Language: [place]
[2024-05-26] MEDS: TYLENOL 650 MG PO (15:55)
[2024-05-26] MEDS: NSS 1000 IV (15:56)
[2024-05-26 16:01] LABS: Lipase 58 U/L (23-300)
[2024-05-26 16:27] LABS: COVID-19 Antigen Negative (Negative)
[2024-05-26 18:54] LABS: Troponin I < 0.012 ng/ml
[2024-05-26] MEDS: TORADOL 15 MG IV (19:31)
[2024-05-26 21:04] LABS: Urine Albumin Negative (Neg - Trace); Urine Bilirubin Negative (Negative); Urine Character Clear (Clear); Urine Color Yellow; Urine Glucose Negative (Negative); Urine Ketone Trace (Negative); Urine Leukocyte Negative (Negative); Urine Nitrite Negative (Negative); Urine Occult Blood Negative (Negative); Urine Specific Gravity 1.005 (<1.030); Urine Urobilinogen Negative (Neg - 1+)
== END 2024-05-26 22:41 | disposition home or self-care (01) ==
LOC: EMR 14:12
PROVIDERS: Physician Assistant; EMERGENCY PHYSICIAN Emergency Medicine; FAMILY PHYSICIAN Family Medicine
DX: R42 Dizziness and giddiness (principal); R53.1 Weakness; R51.9 Headache, unspecified; R06.02 Shortness of breath; R11.0 Nausea; R53.83 Other fatigue; R50.9 Fever, unspecified; R10.9 Unspecified abdominal pain; R07.9 Chest pain, unspecified; Z11.52 Encounter for screening for COVID-19; I10 Essential (primary) hypertension; E78.5 Hyperlipidemia, unspecified; Z86.718 Personal history of other venous thrombosis and embolism
CPT/HCPCS: 99285; 96361; 96374; 71275; 80053; 81003; 83690; 84484; 85025; 87502; 87811; 93005; Q9967

== ENCOUNTER → 2024-07-20 09:32 | Outpatient (REF) | payer MEDICARE, SELFPAY | LOC: RAD 09:32 | PROVIDERS: ATTENDING PHYSICIAN Family Medicine | DX: I65.23 Occlusion and stenosis of bilateral carotid arteries (principal) | CPT/HCPCS: 93880 ==

== ENCOUNTER 2024-08-04 09:05 | Outpatient (RCR) | payer MEDICARE, SELFPAY | END 2024-08-04 23:59 | disposition home or self-care (01) | LOC: RPT 09:05 | PROVIDERS: ATTENDING PHYSICIAN Family Medicine Geriatric Medicine; FAMILY PHYSICIAN Family Medicine | DX: R42 Dizziness and giddiness (principal); Z73.6 Limitation of activities due to disability; R26.89 Other abnormalities of gait and mobility; R51.9 Headache, unspecified; Z85.46 Personal history of malignant neoplasm of prostate | CPT/HCPCS: 97010; 97110; 97112; 97140; 97163 ==

== ENCOUNTER 2024-08-30 09:00 | Outpatient (RCR) | payer MEDICARE, SELFPAY | END 2024-08-31 05:52 | disposition home or self-care (01) | LOC: RPT 09:00 | PROVIDERS: ATTENDING PHYSICIAN Family Medicine Geriatric Medicine; FAMILY PHYSICIAN Family Medicine | DX: R42 Dizziness and giddiness (principal); Z73.6 Limitation of activities due to disability; R26.89 Other abnormalities of gait and mobility; R51.9 Headache, unspecified; Z85.46 Personal history of malignant neoplasm of prostate | CPT/HCPCS: 97010; 97110; 97112; 97140 ==

== ENCOUNTER → 2024-10-19 13:36 | Outpatient (REF) | payer MEDICARE, SELFPAY ==
[2024-10-19 16:27] LABS: ALT (SGPT) 23 U/L (0-50); AST (SGOT) 26 U/L (17-59); Albumin 4.3 g/dl (3.5-5.0); Alkaline Phosphatase 76 U/L (38-126); Blood Urea Nitrogen 15 mg/dl (9-20); Carbon Dioxide 26 mmol/L (22-30); Chloride 101 mmol/L (98-107); Glucose 78 mg/dl (70-99); Potassium 4.3 mmol/L (3.5-5.1); Sodium 136 mmol/L (135-145); Total Bilirubin 0.6 mg/dl (0.2-1.3); Total Protein 6.4 g/dl (6.3-8.2); eGFR > 60.00
[2024-10-20 08:55] LABS: Glycohemoglobin (HgbA1c) 5.8 % (4.0-5.6)
== END ==
LOC: REG 13:36
PROVIDERS: ATTENDING PHYSICIAN Family Medicine
DX: R73.01 Impaired fasting glucose (principal); I10 Essential (primary) hypertension; E78.5 Hyperlipidemia, unspecified; F13.20 Sedative, hypnotic or anxiolytic dependence, uncomplicated
CPT/HCPCS: 36415; 80053; 83036

== ENCOUNTER → 2024-10-21 13:14 | Outpatient (REF) | payer MEDICARE, SELFPAY ==
[2024-10-21 14:33] LABS: HDL Cholesterol 51 mg/dl; LDL Cholesterol, Calculated 83 mg/dl; Total Cholesterol 151 mg/dl (50-199); Triglyceride 85 mg/dl (10-149); Very Low Density Lipoprotein 17 mg/dl (0-30)
== END ==
LOC: REG 13:14
PROVIDERS: ATTENDING PHYSICIAN Family Medicine
DX: R73.01 Impaired fasting glucose (principal); I10 Essential (primary) hypertension; E78.5 Hyperlipidemia, unspecified; F13.20 Sedative, hypnotic or anxiolytic dependence, uncomplicated
CPT/HCPCS: 36415; 80061

== ENCOUNTER → 2024-11-16 12:35 | Outpatient (REF) | payer MEDICARE, SELFPAY ==
[2024-11-16 14:58] LABS: PSA, Total - Diagnostic < 0.06 ng/ml (0.0-4.0)
[2024-11-18 21:51] LABS: % Free Testosterone <0.9 % (1.6-2.9); Free Testosterone <1 pg/mL (47-244); Sex Hormone Binding Globulin 78 nmol/L (19-76); Total Testosterone <3 ng/dL (300-720)
== END ==
LOC: REG 12:35
PROVIDERS: ATTENDING PHYSICIAN Family Medicine Geriatric Medicine; FAMILY PHYSICIAN Family Medicine
DX: C61 Malignant neoplasm of prostate (principal); Z79.818 Long term (current) use of other agents affecting estrogen receptors and estrogen levels
CPT/HCPCS: 36415; 84153; 84270; 84402; 84403

== ENCOUNTER 2025-01-03 11:52 | Outpatient (RCR) | payer MEDICARE, SELFPAY | END 2025-01-03 23:59 | disposition home or self-care (01) | LOC: RPT 11:52 | PROVIDERS: ATTENDING PHYSICIAN Family Medicine Geriatric Medicine; FAMILY PHYSICIAN Family Medicine | DX: C61 Malignant neoplasm of prostate (principal); Z79.818 Long term (current) use of other agents affecting estrogen receptors and estrogen levels; Z73.6 Limitation of activities due to disability | CPT/HCPCS: 97162; 97530 ==

== ENCOUNTER 2025-01-27 13:57 | Outpatient (RCR) | payer MEDICARE, SELFPAY | END 2025-01-27 23:59 | disposition home or self-care (01) | LOC: RPT 13:57 | PROVIDERS: ATTENDING PHYSICIAN Family Medicine Geriatric Medicine; FAMILY PHYSICIAN Family Medicine | DX: C61 Malignant neoplasm of prostate (principal); Z79.818 Long term (current) use of other agents affecting estrogen receptors and estrogen levels; Z73.6 Limitation of activities due to disability; M62.81 Muscle weakness (generalized); R35.1 Nocturia | CPT/HCPCS: 97110; 97112; 97530 ==

== ENCOUNTER 2025-02-24 14:11 | Outpatient (RCR) | payer MEDICARE, SELFPAY | END 2025-02-24 14:59 | disposition home or self-care (01) | LOC: RPT 14:11 | PROVIDERS: ATTENDING PHYSICIAN Family Medicine Geriatric Medicine; FAMILY PHYSICIAN Family Medicine | DX: C61 Malignant neoplasm of prostate (principal); Z79.818 Long term (current) use of other agents affecting estrogen receptors and estrogen levels; Z73.6 Limitation of activities due to disability; M62.81 Muscle weakness (generalized); R35.1 Nocturia; R53.0 Neoplastic (malignant) related fatigue | CPT/HCPCS: 97110; 97112; 97530 ==

== ENCOUNTER 2025-04-06 06:22 | Day surgery (SDC) | payer MEDICARE, SELFPAY | END 2025-04-06 12:40 | disposition home or self-care (01) | LOC: GI 06:22 | PROVIDERS: ATTENDING PHYSICIAN Surgery; FAMILY PHYSICIAN Family Medicine | DX: Z12.11 Encounter for screening for malignant neoplasm of colon (principal); R10.32 Left lower quadrant pain; R19.4 Change in bowel habit; K62.89 Other specified diseases of anus and rectum | CPT/HCPCS: 45380; 88305 ==

== ENCOUNTER 2025-04-25 11:28 | Emergency (ER) | payer MEDICARE, SELFPAY ==
[2025-04-25 11:53] VITALS: BP 150/84
[2025-04-25 12:18] LABS: Hematocrit 36.9 % (39.0-52.0); Hemoglobin 12.5 g/dL (13.0-18.0); Mean Corp Hgb Conc. 33.9 g/dL (33.0-37.0); Mean Corpuscular Volume 90.7 fL (80.0-94.0); Nucleated Red Blood Cells % 0 % (-); Platelet Count 270 10^3/uL (130-400); Red Cell Dist. Width 13.6 % (11.5-14.5)
[2025-04-25 12:24] LABS: INR 0.92; PT 12.7 Sec (11.4-14.6)
[2025-04-25 12:25] LABS: APTT 24.8 Sec (23.4-35.0)
[2025-04-25 12:31] LABS: ALT (SGPT) 26 U/L (0-50); AST (SGOT) 27 U/L (17-59); Albumin 4.4 g/dl (3.5-5.0); Alkaline Phosphatase 70 U/L (38-126); Blood Urea Nitrogen 16 mg/dl (9-20); Calcium 9.0 mg/dl (8.4-10.2); Carbon Dioxide 25 mmol/L (22-30); Chloride 104 mmol/L (98-107); Glucose 90 mg/dl (70-99); Potassium 4.4 mmol/L (3.5-5.1); Sodium 134 mmol/L (135-145); Total Protein 6.8 g/dl (6.3-8.2); eGFR > 60.00
[2025-04-25 12:44] LABS: Troponin I < 0.012 ng/ml
== END 2025-04-25 16:56 | disposition left against medical advice (07) ==
LOC: EMR 11:28
PROVIDERS: Emergency Medicine; EMERGENCY PHYSICIAN Emergency Medicine
DX: R13.10 Dysphagia, unspecified (principal); Z53.21 Procedure and treatment not carried out due to patient leaving prior to being seen by health care provider
CPT/HCPCS: 80053; 84484; 85025; 85610; 85730

== ENCOUNTER → 2025-04-29 16:50 | Outpatient (REF) | payer MEDICARE, SELFPAY | LOC: RAD 16:50 | PROVIDERS: ATTENDING PHYSICIAN Physician Assistant Medical | DX: R47.1 Dysarthria and anarthria (principal) | CPT/HCPCS: 70450 ==

== ENCOUNTER → 2025-05-11 20:09 | Outpatient (REF) | payer MEDICARE, SELFPAY | LOC: MRI 3T 20:09 | PROVIDERS: ATTENDING PHYSICIAN Family Medicine; FAMILY PHYSICIAN Family Medicine | DX: K14.8 Other diseases of tongue (principal); R47.81 Slurred speech | CPT/HCPCS: 70544; 70553 ==

== ENCOUNTER → 2025-06-07 10:58 | Outpatient (REF) | payer MEDICARE, SELFPAY ==
[2025-06-07 12:14] LABS: C-Reactive Protein < 5.00 mg/L (0.0-10.00)
[2025-06-07 12:44] LABS: PSA, Total - Diagnostic < 0.06 ng/ml (0.0-4.0)
[2025-06-10 02:02] LABS: ANA, IgG Reflex to HEp-2 None Detected (None Detected)
== END ==
LOC: REG 10:58
PROVIDERS: ATTENDING PHYSICIAN Family Medicine Geriatric Medicine; FAMILY PHYSICIAN Family Medicine; OTHER PHYSICIAN Psychiatry & Neurology Neurology
DX: C61 Malignant neoplasm of prostate (principal); Z79.818 Long term (current) use of other agents affecting estrogen receptors and estrogen levels; Z12.5 Encounter for screening for malignant neoplasm of prostate; R47.1 Dysarthria and anarthria; R13.10 Dysphagia, unspecified
CPT/HCPCS: 36415; 82550; 84153; 85652; 86038; 86140

== ENCOUNTER → 2025-06-08 10:42 | Outpatient (REF) | payer MEDICARE, SELFPAY | LOC: RAD 10:42 | PROVIDERS: ATTENDING PHYSICIAN Psychiatry & Neurology Neurology; FAMILY PHYSICIAN Family Medicine | DX: I65.29 Occlusion and stenosis of unspecified carotid artery (principal) | CPT/HCPCS: 93880 ==

== ENCOUNTER 2025-08-23 12:10 | Emergency (ER) | payer MEDICARE, SELFPAY ==
[2025-08-23 12:22] VITALS: BP 163/94
[2025-08-23 12:40] LABS: Hematocrit 35.9 % (39.0-52.0); Hemoglobin 12.6 g/dL (13.0-18.0); Mean Corp Hgb Conc. 35.1 g/dL (33.0-37.0); Mean Corpuscular Volume 89.3 fL (80.0-94.0); Nucleated Red Blood Cells % 0 % (-); Platelet Count 226 10^3/uL (130-400); Red Cell Dist. Width 13.1 % (11.5-14.5)
[2025-08-23 12:52] LABS: ALT (SGPT) 31 U/L (0-50); AST (SGOT) 31 U/L (17-59); Albumin 4.5 g/dl (3.5-5.0); Alkaline Phosphatase 76 U/L (38-126); Blood Urea Nitrogen 15 mg/dl (9-20); Calcium 9.1 mg/dl (8.4-10.2); Carbon Dioxide 24 mmol/L (22-30); Chloride 100 mmol/L (98-107); Glucose 136 mg/dl (70-99); Potassium 4.1 mmol/L (3.5-5.1); Sodium 132 mmol/L (135-145); Total Protein 6.9 g/dl (6.3-8.2); eGFR > 60.00
[2025-08-23 12:54] LABS: INR 0.94; PT 12.7 Sec (11.4-14.6)
[2025-08-23 13:00] VITALS: BP 132/78
[2025-08-23 13:02] LABS: Troponin I < 0.012 ng/ml
[2025-08-23] MEDS: NSS 1000 IV (13:24)
--- NOTE | 2025-08-23 13:31 | ED.GENMED ---
History of Present Illness
General
Chief Complaint: Chest Pain
Time Seen by Provider: 08/23/25 12:45
History of Present Illness
History of Present Illness:
75-year-old male with history of hypertension and prostate cancer presenting to the emergency department for chest discomfort and weakness. Patient notes that he woke up this morning around 5 AM and felt very weak and tired, sleepy. He also
reported some left-sided chest discomfort and also felt like his speech was off. Reports a mild cough. 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 The chest pain has resolved, however still feeling
very weak and tired. Denies any fall or trauma. Denies weakness or numbness to his extremities. Denies any visual changes. Denies known personal cardiac issues. Denies abdominal pain or GI symptoms. Denies additional acute medical complaints
Past History
Past History
ED Past Medical History: Psychiatric and Other (DVT); Negative GERD or Hypercholesterolemia
ED Past Surgical History: Negative Cardiac
Social History
Tobacco: Non-smoker
Alcohol: None
Drug: None
Living: with family
Employment: Employed
Family History
Family History: Hypertension
Phy Exam
Physical Exam
Physical Exam:
General: Dry mucous membranes
HEENT: protecting airway
Neck: appears supple
CV: Normal heart rate, regular rhythm
Resp: No accessory muscle use, no increased work of breathing, lungs clear to auscultation bilaterally
Abd: Soft and non-distended, no tenderness to palpation
Extremities: No deformities, no swelling, no erythema
Neuro: alert, no focal neurologic deficit
: deferred
Rectal: deferred
Psych: Normal affect
Skin: Intact
Scores
Heart Score for Chest Pain Patients
STEMI patient?: No
History: Slightly or Non-Suspicious
ECG: Normal
Age: >/= 65 years
Risk Factors: 1 or 2 Risk Factors
Troponin: </= Normal Limit
Heart Score for Chest Pain Patients: 3
Heart Score Risk: 2.5% MACE over next 6 weeks
Course
Orders/Labs/Results
Orders:
Orders
08/23/25 12:11
EKG [Electrocardiogram (*1)] Urgent
Reason for Study: Chest Pain
08/23/25 12:12
EKG- Treatment ONCE
08/23/25 12:29
Complete Blood Count/With Diff Urgent
Comprehensive Metabolic Panel Urgent
Prothrombin Time Urgent
Troponin I Urgent
08/23/25 12:32
CT Head W/o Iv Contrast Urgent
Comment:
Reason For Exam: dizziness, syncope
08/23/25 13:13
0.9% Sodium Chloride 1000 ml [Nss] 1,000 ml IV BOLUS
CR Chest - 2 Views Urgent
Comment:
Reason For Exam: cough, weakness
08/23/25 13:23
COVID-19 Antigen Urgent
Source: Nasal Swab
Influenza A+B Rapid Molecular Urgent
BEN Source: Nasal Swab
Specimen Description:
08/23/25 14:28
EKG- Treatment ONCE
08/23/25 15:26
Troponin I Urgent
08/23/25 15:28
Electrocardiogram (*1) Urgent
Reason for Study: Chest Pain
Abnormal Lab Results
08/23/25
12:29
RBC 4.02 L 10^6/uL
(4.70-6.10)
Hgb 12.6 L g/dL
(13.0-18.0)
Hct 35.9 L %
(39.0-52.0)
MCH 31.3 H pg
(27.0-31.0)
Absolute Lymphs (auto) 0.9 L 10^3/uL
(1.2-3.4)
Neutrophils % 82.4 H %
(42.2-75.2)
Lymphocytes % 12.1 L %
(20.5-51.1)
Sodium 132 L mmol/L
(135-145)
Creatinine 0.5 L mg/dL
(0.7-1.3)
Glucose 136 H mg/dl
(70-99)
08/23/25 12:29
08/23/25 12:29
Vital Signs
Initial and Last Documented VS:
Initial Vital Signs
Temp Pulse Resp BP Pulse Ox
98.8 F 74 18 163/94 96
08/23/25 12:22 08/23/25 12:22 08/23/25 12:22 08/23/25 12:22 08/23/25 12:22
Last Documented Vital Signs
Temp Pulse Resp BP Pulse Ox
98.8 F 73 16 156/85 97
08/23/25 12:22 08/23/25 15:00 08/23/25 15:15 08/23/25 15:00 08/23/25 15:15
MDM/Problems Addressed
MDM/Problems Addressed:
75-year-old male with history of hypertension and prostate CA presenting to the emergency department for episode of chest pressure, weakness, lightheadedness. Vital signs on arrival significant for mild hypertension which has since improved upon
arrival to the hospital.
On exam, patient is in no acute distress. Does appear slightly lethargic, however is awake and alert. Notes preceding episode of chest pressure which has since resolved. EKG obtained on arrival, nonischemic. Lower suspicion at this time for ACS.
Patient additionally notes that last night he started to feel unwell with some chills and cough. Concern for underlying infectious component to symptoms, possible COVID or flu. Pneumonia is also a consideration. No present respiratory distress,
lungs clear to auscultation. Will send laboratory analysis and chest x-ray imaging. However, patient also feels like his speech is slightly off. His lips are extremely dry with suspicion for underlying dehydration. No present focal neurologic
deficits with speech intact. Will screen with CT brain imaging. Starting patient on IV fluids. Will continue to monitor.
16:00 -patient's labs are unremarkable. Negative COVID and flu. Chest x-ray without any signs of pneumonia or fluid. CT brain without acute intracranial abnormality. Repeat troponin and EKG is stable. Patient ambulated steadily and vitals
remained stable. At this time suspect likely viral illness. Feel stable for discharge with continued outpatient supportive therapy, however advise close interval follow-up with primary care doctor. Return precautions discussed and patient
verbalized understanding
*Pulse Oximetry
SaO2: 94
Oxygen Mode of Delivery: Room air
Patient hypoxic: no
*EKG
Interpreted by ED Provider?: Yes
EKG Intrepretation Date: 08/23/25
EKG Intrepretation Time: 13:33
Interpretation: normal
Comparison EKG: no changes (05/26/24)
Heart Rate: 68
Rate: normal
Rhythm: sinus
[place]: normal axis
Interval: normal interval
QRS Pattern: normal QRS
Ischemia: no ischemia
*Critical Care Note
Total Time (30-74mins, 75-104mins- exclusive of procedures): Not Applicable
ED Attending Note
-
Portions of this chart may have been created with voice recognition software.� Occasional wrong word or��sound alike� substitutions may have occurred due to the inherent limitations of voice recognition software.
Discharge Plan
Departure
Prescriptions:
No Action
therapeutic multivitamin Tablet
1 tab PO QPM
acetaminophen 650 mg Tablet Extended Release
1,300 mg PO TIDPRN PRN (Reason: mild pain)
dextroamphetamine-amphetamine 30 mg tablet
15 mg PO .TID-QID
Patient Comments:
05/26/2024: last filled 05/15/24, 60 tabs for 30 days from [facility]
lorazepam 0.5 mg Tablet
0.5 mg PO DAILYPRN PRN (Reason: mild anxiety)
Patient Comments:
05/26/2024: last filled 05/21/24, 60 tabs for 30 days from [facility]
tamsulosin 0.4 mg Capsule
0.4 mg PO HS PRN (Reason: prostate issues)
Patient Comments:
01/26/2024, pt. alternates with their Tadalafil.
ibuprofen 200 mg Tablet
600 mg PO TIDPRN PRN (Reason: mild pain)
docusate sodium [Colace] 100 mg Capsule
200 mg PO HS
montelukast 10 mg Tablet
10 mg PO DAILY
bupropion HCl 300 mg tablet extended release 24 hr
300 mg PO DAILY
Rx Instructions:
01/26/2024, take with 150 mg for a total of 450 mg.
bupropion HCl 150 mg tablet extended release 24 hr
150 mg PO DAILY
Rx Instructions:
01/26/2024, take with 300 mg for a total of 450 mg.
tadalafil 10 mg Tablet
10 mg PO HSPRN PRN (Reason: ED)
Patient Comments:
01/26/2024, pt. alternates with their Tamsulosin.
lorazepam 0.5 mg Tablet
1 mg PO DAILYPRN PRN (Reason: moderate anxiety)
Patient Comments:
05/26/2024: last filled 05/21/24, 60 tabs for 30 days from [facility]
lorazepam 0.5 mg Tablet
1.5 mg PO DAILYPRN PRN (Reason: severe anxiety)
Patient Comments:
05/26/2024: last filled 05/21/24, 60 tabs for 30 days from [facility]
atorvastatin 20 mg Tablet
20 mg PO DAILY
amlodipine 5 mg tablet
5 mg PO DAILY Qty: 30 0RF
cetirizine [Zyrtec] 10 mg Tablet
10 mg PO DAILY
pramipexole 0.25 mg tablet
0.25 mg PO HS
budesonide-formoterol [Symbicort] 160-4.5 mcg/actuation HFA aerosol inhaler
2 puff INHALATION R BID
Referrals:
Escobar Ibanez DO [Family Provider, Family Practice]
Interventions
Interventions:
*General Assessment Last Done: 08/23/25 12:24
*Neglect/Abuse Screening Last Done: 08/23/25 12:24
*ED COVID-19 Vaccine History Last Done: 08/23/25 12:24
*ED Influenza Vaccine History Last Done: 08/23/25 12:24
[facility] Fall Risk Assessment Tool Last Done: 08/23/25 12:59
*Risk Screen - Suicide (C-SSRS) Last Done: 08/23/25 12:24
ED- Cardiac Assessment Last Done: 08/23/25 12:44
Discharge Date and Time
Print Language: CITIZ[place]
[2025-08-23 13:43] LABS: COVID-19 Antigen Negative (Negative)
[2025-08-23 14:03] VITALS: BP 159/96
[2025-08-23 15:00] VITALS: BP 156/85
[2025-08-23 15:39] VITALS: BP 137/79; BP 141/86; BP 154/77; PULSE 70; PULSE 73; PULSE 81
[2025-08-23 16:00] VITALS: BP 143/76
[2025-08-23 16:07] LABS: Troponin I 0.013 ng/ml
== END 2025-08-23 16:23 | disposition home or self-care (01) ==
LOC: EMR 12:10
PROVIDERS: Emergency Medicine; EMERGENCY PHYSICIAN Student in an Organized Health Care Education/Training Program; FAMILY PHYSICIAN Family Medicine
DX: R53.1 Weakness (principal); R53.83 Other fatigue; I10 Essential (primary) hypertension; Z86.718 Personal history of other venous thrombosis and embolism; Z85.46 Personal history of malignant neoplasm of prostate; Z82.49 Family history of ischemic heart disease and other diseases of the circulatory system
CPT/HCPCS: 99284; 96360; 70450; 71046; 80053; 84484; 85025; 85610; 87502; 87811; 93005